=== PATIENT | female | born 1950 | race Caucasian/White ===

== ENCOUNTER → 2018-06-27 12:58 | Outpatient (REF) | payer MEDICARE, SELFPAY ==
--- NOTE | 2018-06-27 15:00 | PAPFT_PTH ---
PATIENT: Wanda Pierre LOC: [facility] U#:[id number] AGE/SX: 75/F ROOM: RE06/27/[address]: MEY Vivar : 1950 BED: DIS: SPEC #: [id number] RECD: 06/28/18 13:03 STATUS: JEREMIAH MOTA #: [id number] DEDRICK: 06/27/18 15:[address]: Lianna Moser DEPT: [facility] Cytology RECD BY: Delores Augustin Tissues: 1 - CX/ENDOCX FOR PAP SMEARS Procedures: PAP THIN PREP/UVM Screening HPV DNA PROBE Comments: [id number]
== END ==
LOC: LBN 12:58
PROVIDERS: PCP Nurse Practitioner Family; Visit Provider Nurse Practitioner Family
DX: Z12.4 Encounter for screening for malignant neoplasm of cervix (principal); Z11.51 Encounter for screening for human papillomavirus (HPV)
CPT/HCPCS: 88142; 87624

== ENCOUNTER 2018-07-12 00:47 | Outpatient (CLI) | payer MEDICARE, SELFPAY ==
--- NOTE | 2018-07-12 09:00 | DI.US_ITS ---
SYMPTOM/DIAGNOSIS: RLQ PAIN, R10.31, H/O OVARIAN CYSTS, POSTMENOPAUSAL PELVIC ULTRASOUND: Routine examination was performed. The uterus measures 9.6 cm. long by 4.8 cm. AP by 3.5 cm. transverse. The endometrial stripe is within normal limits. There is a 1.1 by 1.4 by 1.4 cm. hypoechoic region in the anterior body of the uterus likely reflecting a fibroid. The right ovary measures 2.9 by 2.1 by 3.0 cm. There is a 1.8 cm. simple cyst. The left ovary measures 1.9 by 1.2 by 1.7 cm. The ovary is unremarkable. The ovaries were only visualized transabdominally. No suspicious pelvic mass, free pelvic fluid or hydronephrosis is identified. IMPRESSION: 1.4 cm. uterine fibroid. Otherwise unremarkable pelvic ultrasound.
== END 2018-07-12 01:07 ==
PROVIDERS: PCP Nurse Practitioner Family; Visit Provider Nurse Practitioner Family
DX: D25.9 Leiomyoma of uterus, unspecified (principal); Z78.0 Asymptomatic menopausal state; N83.291 Other ovarian cyst, right side
CPT/HCPCS: 76830; 76856

== ENCOUNTER 2018-10-10 02:15 | Outpatient (CLI) | payer MEDICARE, SELFPAY ==
[2018-10-10 08:31] LABS: Anion Gap 10.1 mmol/L (3-11); BUN 17 mg/dL (7-18); CO2 27.9 mmol/L (21.0-32.0); CREATININE 0.82 mg/dL (0.55-1.02); Calcium 9.3 mg/dL (8.5-10.1); Chloride 104 mmol/L (98-107); Cholesterol 224 mg/dL (50-200); Glucose 102 mg/dL (70-100); HDL Cholesterol 49 mg/dL (40-60); LDL CHOLESTEROL 141 mg/dL (<100); Potassium 4.2 mmol/L (3.5-5.1); Sodium 142 mmol/L (136-145); Triglyceride 189 mg/dL (30-150)
== END 2018-10-10 02:35 ==
PROVIDERS: PCP Nurse Practitioner Family; Visit Provider Nurse Practitioner Family
DX: E78.5 Hyperlipidemia, unspecified (principal); I10 Essential (primary) hypertension
CPT/HCPCS: 36415; 80048; 80061; 83721

== ENCOUNTER 2018-11-01 01:09 | Outpatient (CLI) | payer MEDICARE, SELFPAY ==
--- NOTE | 2018-11-01 14:45 | DI.RAD_ITS ---
SYMPTOMS/DIAGNOSIS: SCREENING FOR OSTEOPOROSIS IN POSTMENOPAUSAL WOMAN, Z78.0 DEXA SCAN: Routine examination was performed. The single lateral image of the spine shows no compression fracture deformities. Evaluation of the left hip shows a total T score of -2.2 and a Z score of -0.9. The findings are consistent with osteopenia and an increased fracture risk. Evaluation of the lumbar spine shows a total T score of -1.4 and a Z score of 0.5. This is also consistent with osteopenia and an increased fracture risk. No evidence of osteoporosis is seen. IMPRESSION: Osteopenia in the left hip and lumbar spine.
--- NOTE | 2018-11-01 15:15 | DI.MAMMO_ITS ---
SYMPTOM/DIAGNOSIS: SCREENING, Z12.31 MAMMOGRAMS: Mammograms were interpreted according to the usual protocol including computer analysis with CAD system, tomosynthesis and C view imaging. Comparison is made with prior examinations. Breast density, Category B. No suspicious masses or microcalcifications are seen. There has been no significant change compared to the prior examinations. The skin and axilla are unremarkable. IMPRESSION: No evidence for malignancy. Yearly mammography is recommended. Category 1B. MQSA ASSESSMENT OF FINDINGS: Negative. Category 1. Patient will receive a letter notifying them of these results. BI-RADS category B. There are scattered areas of fibroglandular density.
== END 2018-11-01 01:29 ==
PROVIDERS: PCP Nurse Practitioner Family; Visit Provider Nurse Practitioner Family
DX: M85.88 Other specified disorders of bone density and structure, other site (principal); Z78.0 Asymptomatic menopausal state; Z12.31 Encounter for screening mammogram for malignant neoplasm of breast
CPT/HCPCS: 77063; 77067; 77080

== ENCOUNTER 2018-12-05 01:39 | Outpatient (CLI) | payer MEDICARE, SELFPAY ==
--- NOTE | 2018-12-05 14:33 | DI.MRI_ITS ---
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 The L1-2 disc is unremarkable. There is moderate loss of disc height and mild concentric disc bulging of the L2-3 disc. There are mild facet degenerative changes, but no significant central canal stenosis or neural foraminal narrowing. At L3-4, there is mild concentric disc bulging. There are facet degenerative changes causing mild central canal stenosis. There is no significant neural foraminal narrowing. At L4-5, there is mild loss of disc height and mild diffuse broad-based disc bulging. There is a superimposed left paracentral disc protrusion. There are facet degenerative changes and ligamentous hypertrophy combining with the disc bulging and disc protrusion to produce moderate tosevere central canal stenosis. There is no significant neural foraminal narrowing. The L5-S1 disc appears intact. There are mild facet degenerative changes. The conus medullaris and marrow signal appear normal. The aorta is normal in diameter. IMPRESSION: Left paracentral disc protrusion at L4-5. Moderate to severe central canal stenosis secondary to a combination of degenerative changes.
== END 2018-12-05 01:59 ==
PROVIDERS: PCP Nurse Practitioner Family; Visit Provider Nurse Practitioner Family
DX: M54.16 Radiculopathy, lumbar region (principal); M51.16 Intervertebral disc disorders with radiculopathy, lumbar region; M48.061 Spinal stenosis, lumbar region without neurogenic claudication
CPT/HCPCS: 72148

== ENCOUNTER 2019-01-10 11:25 | Outpatient (CLI) | payer MEDICARE, SELFPAY ==
[2019-01-10 12:45] LABS: Abs Immature Grans 0.04 k/cumm (0.0-0.09); Absolute Basophil Count 0.05 k/cumm (0.0-0.2); Absolute Eosinophil Count 0.14 k/cumm (0.0-0.7); Absolute Lymphocyte Count 2.63 k/cumm (1.2-3.4); Absolute Monocyte Count 0.73 k/cumm (0.11-0.7); Absolute Neutrophil Count 5.27 k/cumm (1.2-6.7); Basophils % 0.6; Eosinophils % 1.6; HCT 46.2 % (36.0-46.0); HGB 15.3 g/dL (12.0-15.5); Immature Grans % 0.5; Lymphocytes % 29.7; Mean Corp. HGB Concentration 33.1 g/dL (32.0-36.0); Mean Corpuscular Hemoglobin 27.8 pg (27.0-33.0); Mean Corpuscular Volume 83.8 fL (80-95); Mean Platelet Volume 10.6 fL (8.0-11.0); Monocytes % 8.2; Neutrophils % 59.4; Platelet Count 367 x1000/uL (130-400); RBC 5.51 m/cumm (4.00-5.20); RBC Distribution Width 13.3 % (11.7-14.6); White Blood Cell Count 8.86 k/cumm (4.4-10.8)
[2019-01-10 13:10] LABS: ALT 37 U/L (12-78); AST 15 U/L (15-37); Alkaline Phosphatase 95 U/L (46-116); Anion Gap 10.8 mmol/L (3-11); BUN 25 mg/dL (7-18); Bilirubin, Total 0.4 mg/dL (0.2-1.0); CO2 28.2 mmol/L (21.0-32.0); CREATININE 0.83 mg/dL (0.55-1.02); Calcium 9.6 mg/dL (8.5-10.1); Chloride 102 mmol/L (98-107); Glucose 102 mg/dL (70-100); Potassium 4.3 mmol/L (3.5-5.1); Sodium 141 mmol/L (136-145); Total Protein 7.7 g/dL (6.4-8.2)
[2019-01-10 18:55] LABS: Hemoglobin A1C 5.6 % (4.5-6.2)
== END 2019-01-10 11:45 ==
PROVIDERS: PCP Nurse Practitioner Family; Visit Provider Nurse Practitioner Family
DX: E11.9 Type 2 diabetes mellitus without complications (principal); Z01.818 Encounter for other preprocedural examination
CPT/HCPCS: 36415; 80053; 83036; 85025

== ENCOUNTER 2019-10-24 03:57 | Outpatient (CLI) | payer MEDICARE, SELFPAY ==
--- NOTE | 2019-10-28 11:29 | HOLT_ITS ---
Date of service: 10/28/19 Time of Service: 11:29 Holter Monitor Report Holter Monitor Note: There is a 48-hour Holter monitor ordered for the indication of tachycardia. ?Patient was in normal sinus rhythm for majority of the recording. ?The patient had 2 episodes of supraventricular tachycardia with the longest lasting 2 beats (189 bpm) ?The patient had rare (less than 1%) premature atrial contractions. ?Patient had 0 episodes of ventricular tachycardia and rare (less than 1%) single ventricular ectopic beats. ?The patient had no episodes of atrial fibrillation, no pauses greater than 3 seconds and no episodes of high degree heart block. CC: Dictated by: JAMES IMKE MD Dictated:: [id number] <Electronically signed by James Mike M.D.> 10/28/19 1131 Transcribed Date: 10/28/19 Transcribed Time: 1128By: DI THIS REPORT WAS ENTERED UNDER THE WRONG V#. IT WAS C & P INTO THE CORRECT V# BY ON 10/31/19
== END 2019-10-24 04:17 ==
PROVIDERS: PCP Nurse Practitioner Family; Visit Provider Nurse Practitioner Family
DX: I47.1 Supraventricular tachycardia (principal); I49.1 Atrial premature depolarization; I49.3 Ventricular premature depolarization
CPT/HCPCS: 93225

== ENCOUNTER 2019-10-24 08:29 | Outpatient (CLI) | payer MEDICARE, SELFPAY ==
[2019-10-24 10:30] LABS: Anion Gap 10.1 mmol/L (3-11); BUN 23 mg/dL (7-18); CO2 27.9 mmol/L (21.0-32.0); Calcium 9.9 mg/dL (8.5-10.1); Calculated LDL 150 mg/dL; Chloride 104 mmol/L (98-107); Cholesterol 276 mg/dL (<200); Glucose 110 mg/dL (74-106); HDL Cholesterol 51 mg/dL (40-60); Potassium 4.3 mmol/L (3.5-5.1); Sodium 142 mmol/L (136-145); TSH 4.29 uIU/mL (0.36-3.74); Triglyceride 376 mg/dL (<150)
[2019-10-24 10:42] LABS: Vitamin D 25 Total 19.5 ng/ml (30-100)
[2019-10-24 10:48] LABS: FREE T4 0.96 ng/dL (0.76-1.46)
== END 2019-10-24 08:49 ==
PROVIDERS: PCP Nurse Practitioner Family; Visit Provider Nurse Practitioner Family
DX: I10 Essential (primary) hypertension (principal); E78.5 Hyperlipidemia, unspecified; R00.0 Tachycardia, unspecified; M85.80 Other specified disorders of bone density and structure, unspecified site; I47.1 Supraventricular tachycardia; I49.1 Atrial premature depolarization; I49.3 Ventricular premature depolarization
CPT/HCPCS: 36415; 80048; 80061; 82306; 83735; 84439; 84443; 93225

== ENCOUNTER 2019-10-28 10:07 | Outpatient (CLI) | payer MEDICARE, SELFPAY | END 2019-10-28 10:27 | PROVIDERS: PCP Nurse Practitioner Family; Visit Provider Nurse Practitioner Family | DX: I47.1 Supraventricular tachycardia; I49.1 Atrial premature depolarization; I49.3 Ventricular premature depolarization | CPT/HCPCS: 93227; 93226 ==

== ENCOUNTER 2019-11-18 00:50 | Outpatient (CLI) | payer MEDICARE, SELFPAY ==
--- NOTE | 2019-10-28 11:29 | W.HOLTRPT ---
Date of service: 10/28/19 Time of Service: 11:29 Holter Monitor Report Holter Monitor Note: There is a 48-hour Holter monitor ordered for the indication of tachycardia. ?Patient was in normal sinus rhythm for majority of the recording. ?The patient had 2 episodes of supraventricular tachycardia with the longest lasting 2 beats (189 bpm) ?The patient had rare (less than 1%) premature atrial contractions. ?Patient had 0 episodes of ventricular tachycardia and rare (less than 1%) single ventricular ectopic beats. ?The patient had no episodes of atrial fibrillation, no pauses greater than 3 seconds and no episodes of high degree heart block.
--- NOTE | 2019-11-18 15:08 | DI.MAMMO_ITS ---
EXAM: MAMMO SCREENING CLINICAL HISTORY: SCREENING Z12.39 TECHNIQUE: Mammograms were interpreted according to the usual protocol including computer analysis w [employer] CAD system, tomosynthesis and C-view imaging. COMPARISON: Current examination is compared with previous examinations including October 2018 FINDINGS: Breasts are of moderate density with fairly symmetrical distribution of fibroglandular tissue. No do minant mass or clumped microcalcification is identified in either breast. Current examination is com pared with previous examinations including October 2018 and there has been no gross interval change i n appearance in comparison with previous studies. IMPRESSION: No specific evidence of malignancy at this time. Routine screening examinations are suggested at yea rly intervals due to the family history of breast carcinoma. Category 1, breast density category B. BI-RADS Cat 1 - Negative Breast Density - Category B - Scattered areas of fibroglandular density
== END 2019-11-18 01:10 ==
PROVIDERS: PCP Nurse Practitioner Family; Visit Provider Nurse Practitioner Family
DX: Z12.31 Encounter for screening mammogram for malignant neoplasm of breast (principal); Z80.3 Family history of malignant neoplasm of breast
CPT/HCPCS: 77063; 77067

== ENCOUNTER 2020-11-06 20:38 | Outpatient (REF) | payer MEDICARE, SELFPAY | END 2020-11-06 20:58 | LOC: LBN 20:38 | PROVIDERS: PCP Nurse Practitioner Family; Visit Provider Nurse Practitioner Family | DX: N76.0 Acute vaginitis (principal); N39.0 Urinary tract infection, site not specified | CPT/HCPCS: 87086; 87480; 87510; 87660 ==

== ENCOUNTER 2021-03-23 03:39 | Outpatient (CLI) | payer MEDICARE, SELFPAY ==
[2021-03-23 14:00] LABS: Anion Gap 10.7 mmol/L (3-11); BUN 20 mg/dL (7-18); CO2 28.3 mmol/L (21.0-32.0); Calculated LDL 100 mg/dL (<100); Chloride 103 mmol/L (98-107); Cholesterol 222 mg/dL (<200); Estimated GFR 55.14 (mL/min/1.73m2); Glucose 100 mg/dL (74-106); HDL Cholesterol 48 mg/dL (40-60); Sodium 142 mmol/L (136-145); Triglyceride 371 mg/dL (<150)
[2021-03-25 02:53] LABS: Vitamin D 25 Total 19.1 ng/mL (30-100)
== END 2021-03-23 03:40 | disposition home or self-care (01) ==
LOC: LBO 03:40
PROVIDERS: PCP Nurse Practitioner Family; Visit Provider Nurse Practitioner Family
DX: E55.9 Vitamin D deficiency, unspecified (principal); I10 Essential (primary) hypertension; E78.5 Hyperlipidemia, unspecified
CPT/HCPCS: 36415; 80048; 80061; 82306

== ENCOUNTER 2021-04-27 03:14 | Outpatient (CLI) | payer MEDICARE, SELFPAY ==
[2021-04-27 12:29] LABS: Anion Gap 12.2 mmol/L (3-11); BUN 22 mg/dL (7-18); CO2 23.8 mmol/L (21.0-32.0); Chloride 105 mmol/L (98-107); Estimated GFR 55.14 (mL/min/1.73m2); Glucose 99 mg/dL (74-106); Potassium 4.3 mmol/L (3.5-5.1); Sodium 141 mmol/L (136-145)
== END 2021-04-27 03:15 | disposition home or self-care (01) ==
LOC: LBO 03:14
PROVIDERS: PCP Nurse Practitioner Family; Visit Provider Nurse Practitioner Family
DX: I10 Essential (primary) hypertension (principal)
CPT/HCPCS: 36415; 80048

== ENCOUNTER → 2022-03-22 01:32 | Outpatient (CLI) | payer MEDICARE, SELFPAY ==
--- NOTE | 2022-03-22 08:09 | DI.MAMMO_ITS ---
Exam(s) MAMMO SCREENING EXAM: MAMMO SCREENING CLINICAL HISTORY: screening, Z12.39 TECHNIQUE: Mammograms were interpreted according to the usual protocol including computer analysis w [email or web address] CAD system, tomosynthesis and C-view imaging. COMPARISON: FINDINGS: The breasts are of moderate density with fairly symmetrical distribution of fibroglandular tissue. N o dominant mass or clumped microcalcification is identified in either breast. The current examinatio n is compared with previous examinations including October 2019 and there is question of increased pr ominence of a small focal area of asymmetric density seen in the lateral central portion of the left breast on CC view only. Additional mammographic views of the left breast requested to include CC spo t compression view. No other significant change seen. IMPRESSION: Additional mammographic views of the left breast are requested as described above. Breast ultrasound may be indicated as well depending on the results of the additional mammographic views. BI-RADS Category 0 - Assessment Incomplete: Need additional imaging evaluation Breast Density - Category B - Scattered areas of fibroglandular density
== END ==
PROVIDERS: PCP Nurse Practitioner Family; Visit Provider Physician Assistant
DX: Z12.31 Encounter for screening mammogram for malignant neoplasm of breast (principal); R92.8 Other abnormal and inconclusive findings on diagnostic imaging of breast
CPT/HCPCS: 77063; 77067

== ENCOUNTER → 2022-04-04 00:55 | Outpatient (CLI) | payer MEDICARE, SELFPAY ==
--- NOTE | 2022-04-04 10:30 | DI.MAMMO_ITS ---
Exam(s) MAMMO SCREEN CALL BACK UNI EXAM: MAMMO SCREEN CALL BACK UNI CLINICAL HISTORY: F/U ABNL MAMMO, ASYMMETRIC DENSITY LATERAL CENTRAL LT BREAST TECHNIQUE: Spot compression views and tomographic imaging were performed. COMPARISON: 2015 through 22 Mar 2022 FINDINGS: No suspicious masses or suspicious microcalcifications are seen. No persistent abnormality is seen on the additional views performed. The findings are consistent wit h overlying fibroglandular tissue. There has been no significant change from prior exams. IMPRESSION: BI-RADS Category 1, Negative Yearly screening mammography is recommended. Breast Density - Category B, scattered fibroglandular densities.
== END ==
PROVIDERS: PCP Nurse Practitioner Family; Visit Provider Physician Assistant
DX: Z12.31 Encounter for screening mammogram for malignant neoplasm of breast (principal); R92.8 Other abnormal and inconclusive findings on diagnostic imaging of breast; N64.59 Other signs and symptoms in breast
CPT/HCPCS: 77063; 77067

== ENCOUNTER 2022-05-20 02:34 | Outpatient (CLI) | payer MEDICARE, SELFPAY ==
[2022-05-20 12:53] LABS: Abs Immature Grans 0.02 10^3/uL (0.0-0.06); Absolute Basophil Count 0.07 10^3/uL (0.0-0.2); Absolute Eosinophil Count 0.25 10^3/uL (0.0-0.7); Absolute Lymphocyte Count 2.95 10^3/uL (1.2-3.4); Absolute Monocyte Count 0.68 10^3/uL (0.1-0.8); Absolute Neutrophil Count 3.95 10^3/uL (1.2-6.7); Basophils % 0.9; Eosinophils % 3.2; HCT 44.1 % (36.0-46.0); HGB 14.3 g/dL (11.2-15.7); Immature Grans % 0.3; Lymphocytes % 37.2; MCH 27.9 pg (27.0-33.0); MCHC 32.4 % (32.0-36.0); MCV 86 fL (80-95); MPV 10.5 fL (8.0-11.0); Monocytes % 8.6; Neutrophils % 49.8; Platelet Count 278 10^3/uL (130-400); RBC 5.13 10^6/uL (3.93-5.22); RDW 12.8 % (11.7-14.6); RDW-SD 39.9 fL; WBC 7.92 10^3/uL (4.4-10.8)
[2022-05-20 13:16] LABS: ALT 28 U/L (14-59); AST 23 U/L (15-37); Alkaline Phosphatase 82 U/L (46-116); Anion Gap 10.3 mmol/L (3-11); BUN 25 mg/dL (7-18); Bilirubin, Total 0.4 mg/dL (0.2-1.0); CO2 27.7 mmol/L (21.0-32.0); CREATININE 0.9 mg/dL (0.55-1.02); Calcium 9.2 mg/dL (8.5-10.1); Calculated LDL 130 mg/dL (<100); Chloride 101 mmol/L (98-107); Cholesterol 234 mg/dL (<200); Glucose 98 mg/dL (74-106); HDL Cholesterol 53 mg/dL (40-60); Potassium 4.5 mmol/L (3.5-5.1); Sodium 139 mmol/L (136-145); TSH (W/Ref FT4) 1.77 uIU/mL (0.36-3.74); Total Protein 7.7 g/dL (6.4-8.2); Triglyceride 259 mg/dL (<150)
== END 2022-05-20 02:35 | disposition home or self-care (01) ==
LOC: LOS 02:35
PROVIDERS: PCP Nurse Practitioner Family; Visit Provider Physician Assistant
DX: I10 Essential (primary) hypertension (principal); E78.5 Hyperlipidemia, unspecified
CPT/HCPCS: 36415; 80053; 80061; 84443; 85025

== ENCOUNTER → 2023-03-02 09:16 | Outpatient (BNVA) | payer MEDICARE, SELFPAY | PROVIDERS: PCP Nurse Practitioner Family; Referring Provider Nurse Practitioner Family; Visit Provider Physical Therapy Assistant | DX: Z12.11 Encounter for screening for malignant neoplasm of colon (principal); Z86.010 Personal history of colon polyps; Z80.0 Family history of malignant neoplasm of digestive organs ==

== ENCOUNTER 2023-03-21 06:53 | Day surgery (SDC) | payer MEDICARE, SELFPAY ==
[2023-03-21 07:05] VITALS: BP 141/91; PULSE 109; RESP 16; TEMP 36.3; O2SAT 96
[2023-03-21] MEDS: Lactated Ringers 1,000 ML 80 ML IV (07:45)
--- NOTE | 2023-03-21 07:53 | W.ANESPRE ---
General Info Date of Service Date Performed: 03/21/23 Height: 5 ft 4 in Weight: 80.5 kg Body Mass Index (BMI): 30.4 Surgical Procedure: Operation Date: 03/21/23 08:20 Proposed Procedure Side Surgeon p Colonoscopy Jordon Piña MD Meds Allergies and Home Medications Allergies Allergy/AdvReac Type Severity Reaction Status Date / Time No Known Allergies Allergy Unverified 03/21/23 07:24 Home Medication Medication Instructions Recorded bisacodyl 5 mg tablet,delayed 5 mg PO ONCE colonscopy bowel prep 03/02/23 release (Dulcolax (bisacodyl)) #4 tabs polyethylene glycol 3350 17 238 g PO ONCE colonoscopy prep 03/02/23 gram/dose oral powder #238 grams lisinopril 10 mg tablet 10 mg PO DAILY #90 tab-caps 03/20/23 Current Visit Medications: Current Medications Generic Name Dose Route Start Last Admin Trade Name Freq PRN Reason Stop Dose Admin Ringer's Solution 1,000 mls @ 80 mls/hr 03/21/23 06:00 03/21/23 07:45 IV 03/21/23 23:59 80 mls/hr INFUSION ARUN Administration IV Miscellaneous Supplies 1 each 03/21/23 06:00 Iv Access IV 03/21/23 23:59 DIRECTED ARUN Sodium Chloride 0 ml 03/21/23 06:00 Normal Saline Flush 10 Ml Syr IV 03/21/23 23:59 PRN PRN Sodium Chloride 0 ml 03/21/23 06:00 Normal Saline 10 Ml Vial IJ 03/21/23 23:59 DIRECTED PRN Sterile Water 0 ml 03/21/23 06:00 Water,Injection,Sterile 10 Ml Vial IJ 03/21/23 23:59 DIRECTED PRN PFSH Active Problems Active Problems: Problem Status Onset Code Hyperlipidemia E78.5 Osteopenia M85.80 Refusal of blood transfusions as patient is Mu-ism Z53.1 Essential hypertension I10 Vitamin D deficiency E55.9 Tachycardia R00.0 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 Copeland at [facility] Tobacco Smoking/Tobacco Use Status: Never Passive smoking exposure: No Second hand exposure: Yes Alcohol Alcohol Intake: never Substance Use Substance use: Never Substance use type: does not use Prental History History 3 Para 3 Hx # Term Pregnancies Multiple births Hx # Pregnancies Ectopic pregnancies AB induced Hx Number of Living Children 3 AB spontaneous Vital Signs and Lab Results Vital Signs Most Recent Vital Signs in EMR: Most Recent Vital Signs Temp Pulse Resp BP Pulse Ox 36.3 C L 109 H 16 141/91 H 96 03/21/23 07:05 03/21/23 07:05 03/21/23 07:05 03/21/23 07:05 03/21/23 07:05 Lab Results Blood Type / Crossmatch: No Data to Display Complete Blood Count: No Data to Display Complete Metabolic Panel: No Data to Display Liver Function Panel: No Data to Display Coagulation Panel: No Data to Display Cardiac Panel: No Data to Display Arterial Blood Gas: No Data to Display Venous Blood Gas: No Data to Display Pancreas Panel: No Data to Display Thyroid Panel: No Data to Display Infectious Disease: No Data to Display Blood Cultures: No Data to Display Toxicology Panel: No Data to Display Anesthesia Assessment and Plan Anesthesia History Personal History: No History of Anesthesia Complications and PONV Family History: No Family History of Anesthesia Complications Exercise Tolerance Exercise Tolerance: Metabolic Equivalents>4 Pertinent Negatives Pertinent Negatives: No Symptoms of GERD, No Major Cardiovascular Symptoms or Complaints and No Major Pulmonary Symptoms or Complaints Cardiac & Pulmonary Exam Cardiac Exam: Normal S1/S2 Heart Sounds Pulmonary Exam: Clear Bilateral Breath Sounds Implantable Cardiac Device Does patient have a Pacemaker or an ICD?: No Airway Exam Known Difficult Airway: No Mallampati Class: 3 Mouth Opening: Normal (> 3cm) Thyromental Distance: Less than 3 cm Neck Range of Motion: Full ROM Neck Circumference: Normal Teeth Condition: Normal Dentition ASA Classification ASA Score: ASA 2 Emergency Case?: No NPO Status NPO Status: NPO Clears >2 hours, Solids >8 hours Anesthesia Plan Resuscitation Status: Full Code Anesthesia Technique: General Anesthesia Airway Planned: Natural Airway Monitors Used: Standard Monitors
[2023-03-21 07:56] VITALS: BMI 30.4
--- NOTE | 2023-03-21 08:00 | W.COLOREPORT ---
Date of service: 03/21/23 Time of Service: 08:00 Colonoscopy Report Procedure Description: Procedures performed: 1. Colonoscopy with snare polypectomy x2 Preoperative diagnosis: Surveillance colonoscopy, colon polyps, family history Postoperative diagnosis: Colon polyps, grade 2 internal hemorrhoids Surgeon: Richard Piña Anesthesia: Coleman Indication for procedure: Patient is a 72-year-old woman who is not having any symptoms but has a strong family history of colorectal cancer. Both parents as well as her son. Prior colonoscopies have found adenomatous polyps in her. She is due for surveillance. Findings: The ileum appeared normal. On top of the ileocecal valve a 5-7 mm sessile polyp was removed with hot snare technique. In the ascending colon, another 5-7 mm sessile polyp was removed with hot snare technique. No diverticuli. Grade 2 internal hemorrhoids noted on retroflexion Surveillance/follow-up recommendations: Because of the personal & family histories and finding, right?sided, obviously adenomatous polyps, I recommend repeating in 3 years. Complications: None Blood loss: Minimal Specimens:?? YES Quality of Prep:?? Good Procedure in detail: Written consent was obtained from the patient who was in agreement with the risks, benefits and indications of the procedure.? We went to the endoscopy suite and laid the patient in left lateral decubitus position.? Anesthesia was administered which was tolerated well.? A timeout was performed and when we are all in agreement we began the procedure. Digital rectal exam and visual examination was performed and within normal limits.? A well?lubricated colonoscope was advanced without difficulty all the way to the cecum identified by the ileocecal valve, and triangular folds and appendiceal orifice. The terminal ileum was intubated and appeared normal.? It was then slowly withdrawn.?? Retroflexion was performed in the rectum.? The findings/interventions are noted above. The scope was then removed and the patient tolerated the procedure well and was then taken back to the PACU in hemodynamically stable condition.
--- NOTE | 2023-03-21 08:22 | BOWEL_PTH ---
PATIENT: Wanda Pierre LOC: [facility] U#:[id number] AGE/SX: 72/F ROOM: RE03/21/[address]: Jordon Piña : 1950 BED: DIS: 03/21/2023 SPEC #: [id number] RECD: 03/21/23 11:24 STATUS: JEREMIAH RE #: [id number] DEDRICK: 03/21/23 08:[address]: Jordon Piña DEPT: Surgical Specimen RECD BY: Delores Augustin ENTERED: 03/21/23 11:24 SP TYPE: Bowel OTHR DR: Lianna Moser, MEY Tissues: 1 - BIOPSY BOWEL 2 - BIOPSY BOWEL Procedures: GROSS AND MICRO LEVEL 4 Comments: [id number]
[2023-03-21 08:35] VITALS: BP 91/71; PULSE 92; RESP 22; TEMP 36.5; O2SAT 94
--- NOTE | 2023-03-21 08:47 | W.ANESPOSTOP ---
Postoperative Evaluation Date, Time and Location Date Performed: 03/21/23 Time Performed: 08:47 Patient Location: Day Surgery Unit Vital Signs Most Recent Imported Vital Signs: Most Recent Vital Signs Temp Pulse Resp BP Pulse Ox 36.3 C L 109 H 16 141/91 H 96 03/21/23 07:05 03/21/23 07:05 03/21/23 07:05 03/21/23 07:05 03/21/23 07:05 Pain Score Most Recent Pain Score: Most Recent Pain Score Pain Level 0 03/21/23 07:05 Assessment Mental Status: Awake (Alert & Oriented to Patient Baseline) Airway and Respiratory Function: Patent airway with normal (patient baseline) respiratory exam Cardiovascular Function: Hemodynamically Stable Hydration Status: Adequately Hydrated Nausea & Vomiting: No Nausea or Vomiting Pain: Pt. Denies Any Pain Peripheral Nerve Block: Patient did not receive a nerve block
[2023-03-21 08:55] VITALS: BP 136/80; PULSE 87; RESP 20; TEMP 36.2; O2SAT 95
== END 2023-03-21 09:17 | disposition home or self-care (01) ==
PROVIDERS: PCP Nurse Practitioner Family; Visit Provider Student in an Organized Health Care Education/Training Program
PROC: 0DJD8ZZ Inspection of Lower Intestinal Tract, Via Natural or Artificial Opening Endoscopic (ICD-10-PCS; CPT 45378; principal; 2023-03-21 08:15)
DX: Z12.11 Encounter for screening for malignant neoplasm of colon (principal); Z86.010 Personal history of colon polyps; Z80.0 Family history of malignant neoplasm of digestive organs; K64.1 Second degree hemorrhoids; D12.0 Benign neoplasm of cecum; K63.89 Other specified diseases of intestine
CPT/HCPCS: 45385; 88305

== ENCOUNTER 2023-04-04 03:17 | Outpatient (CLI) | payer MEDICARE, SELFPAY ==
[2023-04-04 13:15] LABS: Anion Gap 7.3 mmol/L (3-11); BUN 24 mg/dL (7-18); CO2 30.7 mmol/L (21.0-32.0); CREATININE 1.1 mg/dL (0.55-1.02); Calcium 9.6 mg/dL (8.5-10.1); Calculated LDL 128 mg/dL (<100); Chloride 105 mmol/L (98-107); Cholesterol 235 mg/dL (<200); Estimated GFR 54.06 (mL/min/1.73m2); Glucose 110 mg/dL (74-106); HDL Cholesterol 56 mg/dL (40-60); Potassium 4.9 mmol/L (3.5-5.1); Sodium 143 mmol/L (136-145); TSH (W/Ref FT4) 2.68 uIU/mL (0.36-3.74); Triglyceride 255 mg/dL (<150)
[2023-04-04 13:16] LABS: Vitamin D 25 Total 19.9 ng/mL (30-100)
[2023-04-04 13:54] LABS: Hemoglobin A1C 5.9 % (<5.7)
== END 2023-04-04 03:18 | disposition home or self-care (01) ==
LOC: LOS 03:17
PROVIDERS: PCP Nurse Practitioner Family; Visit Provider Nurse Practitioner Family
DX: I10 Essential (primary) hypertension (principal); R73.01 Impaired fasting glucose; E55.9 Vitamin D deficiency, unspecified
CPT/HCPCS: 36415; 80048; 80061; 82306; 83036; 84443

== ENCOUNTER → 2023-09-18 02:17 | Outpatient (CLI) | payer MEDICARE, SELFPAY ==
--- NOTE | 2023-09-18 08:00 | DI.MAMMO_ITS ---
Exam(s) MAMMO SCREENING EXAM: MAMMO SCREENING CLINICAL HISTORY: screening, Z12.39 TECHNIQUE: Mammograms were interpreted according to the usual protocol including computer analysis w [employer] CAD system, tomosynthesis and C-view imaging. COMPARISON: 2014 through 2021 FINDINGS: The breasts are composed of scattered fibroglandular densities, Breast Density category B. No suspicious masses or suspicious microcalcifications are seen. No skin thickening or abnormal axillary lymph nodes are seen. There has been no significant change from prior exams. IMPRESSION: BI-RADS Category 1, Negative mammogram Yearly screening mammography is recommended. Breast Density - Category B, scattered fibroglandular densities. A negative radiographic report should not delay biopsy if a dominant or clinically suspicious mass is present. Up to ten percent of cancers are not identified on mammography. A negative report may reinforce clinical impression. Adenosis and dense breasts may obscure an underlying neoplasm. False positive reports average 6 to 10%. Patient will receive a letter notifying them of these results.
--- NOTE | 2023-09-18 08:00 | DI.DEXA_ITS ---
Exam(s) XR DEXA BONE DENSITY W/WO GUILLERMINA EXAM: XR DEXA BONE DENSITY W/WO GUILLERMINA CLINICAL HISTORY: osteopenia, POSTMENOPAUSAL STATUS, Z78.0 TECHNIQUE: [employer] Horizon C densitometer analysis of left hip, lumbar spine and left forearm. Lat eral survey image of the thoracic and lumbar spine. COMPARISON: DX XR DEXA BONE DENSITY W/WO GUILLERMINA from 11/01/2018 FINDINGS: Lateral view of the thoracic and lumbar spine shows no evidence of compression fractures. Bone mineral density measurements of the lumbar spine correspond to a total T-score of -1.3, in the osteopenic range. Not significantly changed from prior. Bone mineral density measurements of the left hip correspond to a total T-score of -2.0. This repres ents a 3.4 percent increase from 2019. . The femoral neck T-score is -2.6, in the osteoporotic ran ge.. Theleft forearm bone mineral density measurements correspond to a T-score of the distal 3rd of 0.3, in the osteoporotic range. This represents a 5.7 percent decrease from the prior exam.. IMPRESSION: Osteoporosis of the forearm and hip. Osteopenia of the lumbar spine.
== END ==
PROVIDERS: PCP Nurse Practitioner Family; Visit Provider Nurse Practitioner Family
DX: Z78.0 Asymptomatic menopausal state (principal); Z12.31 Encounter for screening mammogram for malignant neoplasm of breast; Z13.820 Encounter for screening for osteoporosis; M81.0 Age-related osteoporosis without current pathological fracture
CPT/HCPCS: 77063; 77067; 77080

== ENCOUNTER 2024-03-21 05:17 | Outpatient (CLI) | payer MEDICARE, SELFPAY ==
[2024-03-21 12:33] LABS: Abs Immature Grans 0.01 10^3/uL (0.0-0.06); Absolute Basophil Count 0.08 10^3/uL (0.0-0.2); Absolute Eosinophil Count 0.19 10^3/uL (0.0-0.7); Absolute Lymphocyte Count 2.89 10^3/uL (1.2-3.4); Basophils % 1.1 %; Eosinophils % 2.5 %; HCT 44.8 % (36.0-46.0); HGB 14.5 g/dL (11.2-15.7); Immature Grans % 0.1 %; Lymphocytes % 38.7 %; MCH 28.3 pg (27.0-33.0); MCHC 32.4 % (32.0-36.0); MCV 88 fL (80-95); MPV 10.8 fL (8.0-11.0); Neutrophils % 49.6 %; Platelet Count 260 10^3/uL (130-400); RBC 5.12 10^6/uL (3.93-5.22); RDW-SD 41.8 fL; WBC 7.47 10^3/uL (4.4-10.8)
[2024-03-21 12:54] LABS: Hemoglobin A1C 6.3 % (<5.7)
[2024-03-21 13:06] LABS: Vitamin D 25 Total 29.8 ng/mL (30-100)
[2024-03-21 13:08] LABS: ALT 33 U/L (14-59); AST 24 U/L (15-37); Albumin 4.3 g/dL (3.4-5.0); Alkaline Phosphatase 84 U/L (46-116); Anion Gap 10.5 mmol/L (3-11); BUN 21 mg/dL (7-18); Bilirubin, Total 0.5 mg/dL (0.2-1.0); CO2 26.5 mmol/L (21.0-32.0); Calcium 9.1 mg/dL (8.5-10.1); Calculated LDL 61 mg/dL (<100); Chloride 104 mmol/L (98-107); Cholesterol 167 mg/dL (<200); Estimated GFR 60.23 (mL/min/1.73m2); Glucose 104 mg/dL (74-106); HDL Cholesterol 59 mg/dL (40-60); Potassium 4.8 mmol/L (3.5-5.1); Sodium 141 mmol/L (136-145); Triglyceride 236 mg/dL (<150)
[2024-03-21 20:07] LABS: Hepatitis C Ab w Rflx HCV PCR Negative (Negative)
== END 2024-03-21 05:18 | disposition home or self-care (01) ==
LOC: LOS 05:18
PROVIDERS: PCP Nurse Practitioner Family; Visit Provider Nurse Practitioner Family
DX: I10 Essential (primary) hypertension (principal); M81.0 Age-related osteoporosis without current pathological fracture; R73.03 Prediabetes; E55.9 Vitamin D deficiency, unspecified; Z11.59 Encounter for screening for other viral diseases
CPT/HCPCS: 36415; 80053; 80061; 82306; 86803; 83036; 85025

== ENCOUNTER 2024-03-27 11:29 | Outpatient (CLI) | payer MEDICARE, SELFPAY ==
[2024-03-27 13:10] LABS: TSH (W/Ref FT4) 2.18 uIU/mL (0.36-3.74)
[2024-03-28 11:43] LABS: HBs Antibody, Quant <3.1 mIU/mL (See Note); Hep B Surface Ab Negative (See Note); Hepatitis B Core Antibody Negative (Negative); Hepatitis B Surface Antigen Negative (Negative)
[2024-03-28 11:57] LABS: HIV-1/2 Ag & Ab Screen Negative (Negative)
[2024-03-28 12:04] LABS: Hep A Total Ab w Rflx IgM Negative (Negative)
== END 2024-03-27 11:30 | disposition home or self-care (01) ==
LOC: LOS 11:29
PROVIDERS: PCP Nurse Practitioner Family; Referring Provider Nurse Practitioner Family; Visit Provider Nurse Practitioner Family
DX: R19.7 Diarrhea, unspecified (principal); Z11.51 Encounter for screening for human papillomavirus (HPV); Z11.59 Encounter for screening for other viral diseases; Z01.419 Encounter for gynecological examination (general) (routine) without abnormal findings
CPT/HCPCS: 36415; 86704; 86706; 86709; 87340; 87389; 84443

== ENCOUNTER 2024-03-28 09:06 | Outpatient (REF) | payer MEDICARE, SELFPAY ==
[2024-03-28 22:16] LABS: Campylobacter PCR Negative (Negative); Salmonella PCR Negative (Negative); Shiga Toxin PCR Negative (Negative); Shigella/Enteroinvasive Ecoli Negative (Negative)
[2024-04-01 12:07] LABS: Calprotectin <50.0 mcg/g
== END 2024-03-28 09:07 | disposition home or self-care (01) ==
LOC: LBN 09:06
PROVIDERS: PCP Nurse Practitioner Family; Visit Provider Nurse Practitioner Family
DX: R11.0 Nausea (principal); R19.7 Diarrhea, unspecified
CPT/HCPCS: 87329; 87505; 83993

== ENCOUNTER 2025-04-28 02:10 | Outpatient (CLI) | payer MEDICARE, SELFPAY ==
[2025-04-28 13:00] LABS: Hemoglobin A1C 6.2 % (<5.7)
[2025-04-28 13:01] LABS: ALT 34 U/L (14-59); AST 20 U/L (15-37); Albumin 4.2 g/dL (3.4-5.0); Alkaline Phosphatase 80 U/L (46-116); Anion Gap 9.3 mmol/L (3-11); BUN 44 mg/dL (7-18); Bilirubin, Total 0.5 mg/dL (0.2-1.0); CO2 26.7 mmol/L (21.0-32.0); CREATININE 1.1 mg/dL (0.55-1.02); Calcium 9.4 mg/dL (8.5-10.1); Calculated LDL 68 mg/dL (<100); Chloride 103 mmol/L (98-107); Cholesterol 171 mg/dL (<200); Estimated GFR 53.39 (mL/min/1.73m2); Glucose 118 mg/dL (74-106); HDL Cholesterol 55 mg/dL (>or=50); Potassium 4.6 mmol/L (3.5-5.1); Sodium 139 mmol/L (136-145); TSH (W/Ref FT4) 2.44 uIU/mL (0.36-3.74); Triglyceride 244 mg/dL (<150); Vitamin D 25 Total 33 ng/mL (30-100)
== END 2025-04-28 02:11 | disposition home or self-care (01) ==
LOC: LOS 02:10
PROVIDERS: PCP Nurse Practitioner Family; Visit Provider Nurse Practitioner Family
DX: R73.03 Prediabetes (principal); M81.0 Age-related osteoporosis without current pathological fracture; R63.5 Abnormal weight gain; E78.5 Hyperlipidemia, unspecified
CPT/HCPCS: 36415; 80053; 80061; 82306; 83036; 84443

== ENCOUNTER 2025-05-20 01:33 | Outpatient (CLI) | payer MEDICARE, SELFPAY ==
--- NOTE | 2025-05-20 08:06 | DI.MAMMO_ITS ---
Exam(s) MAMMO SCREENING EXAM: MAMMO SCREENING CLINICAL HISTORY: screening,z12.39 TECHNIQUE: Mammograms were interpreted according to the usual protocol including computer analysis with CAD system, tomosynthesis and C-view imaging. COMPARISON: 2014 through 2022 FINDINGS: The breasts are composed of scattered fibroglandular densities, Breast Density category B. No suspicious masses or suspicious microcalcifications are seen. No skin thickening or abnormal axillary lymph nodes are seen. There has been no significant change from prior exams. IMPRESSION: BI-RADS Category 1, Negative mammogram Yearly screening mammography is recommended. Breast Density - Category B - There are scattered areas of fibroglandular density. Breast density Category C or D implies that the patient has dense breast tissue. Dense breast tissue can make it harder to find cancer on a mammogram. Dense breast tissue is also associated with an increased risk of breast cancer. This information about the result of the mammogram report was provided to the patient to raise their awareness. Use this report when you speak with the patient about their risks for breast cancer, which includes their family history. At that time, you may recommend additional screening tests (Ultrasound or MRI) as these tests may add significant information. A negative radiographic report should not delay biopsy if a dominant or clinically suspicious mass is present. Up to ten percent of cancers are not identified on mammography. A negative report may reinforce clinical impression. Adenosis and dense breasts may obscure an underlying neoplasm. False positive reports average 6 to 10%. Patient will receive a letter notifying them of these results.
== END 2025-05-20 01:53 ==
LOC: DI 01:34
PROVIDERS: PCP Nurse Practitioner Family; Visit Provider Nurse Practitioner Family
DX: Z12.31 Encounter for screening mammogram for malignant neoplasm of breast (principal); E66.9 Obesity, unspecified; R92.323 Mammographic fibroglandular density, bilateral breasts
CPT/HCPCS: 77063; 77067

== ENCOUNTER 2025-07-02 14:22 | Outpatient (CLI) | payer MEDICARE, SELFPAY ==
--- NOTE | 2025-07-02 06:00 | DI.RAD_ITS ---
Exam(s) XR FOOT RT COMPLETE EXAM: XR FOOT RT COMPLETE CLINICAL HISTORY: Right foot pain M79.671. TECHNIQUE: 2D digital imaging was performed of the right foot. Three images were obtained. AP, oblique and lateral views were obtained. COMPARISON: No exams were available for comparison FINDINGS: BONES: No acute fracture is present. No bony destructive lesion is seen. There is an enthesophyte at the posterior calcaneus. There is a small plantar calcaneal spur. JOINTS: No dislocation present. The joint spaces are well maintained. SOFT TISSUE: Normal. IMPRESSION: Calcaneal spurs. DATA REPOSITORY: RADIATION DOSE DELIVERED:
== END 2025-07-02 14:42 ==
PROVIDERS: PCP Nurse Practitioner Family; Visit Provider Podiatrist
DX: M79.671 Pain in right foot (principal); M77.31 Calcaneal spur, right foot; M84.374A Stress fracture, right foot, initial encounter for fracture; X58.XXXA Exposure to other specified factors, initial encounter; M92.61 Juvenile osteochondrosis of tarsus, right ankle; M76.61 Achilles tendinitis, right leg; M72.2 Plantar fascial fibromatosis
CPT/HCPCS: 29580; 99213; 29850; 73630

== ENCOUNTER → 2025-07-23 14:01 | Outpatient (BNVA) | payer MEDICARE, SELFPAY | PROVIDERS: PCP Nurse Practitioner Family; Referring Provider Nurse Practitioner Family; Visit Provider Podiatrist | DX: M79.671 Pain in right foot (principal); M92.61 Juvenile osteochondrosis of tarsus, right ankle; M76.61 Achilles tendinitis, right leg; M72.2 Plantar fascial fibromatosis; M84.374A Stress fracture, right foot, initial encounter for fracture | CPT/HCPCS: 99213 ==

== ENCOUNTER → 2025-08-27 14:19 | Outpatient (BNVA) | payer MEDICARE, SELFPAY | PROVIDERS: PCP Nurse Practitioner Family; Referring Provider Nurse Practitioner Family; Visit Provider Podiatrist | DX: M84.374A Stress fracture, right foot, initial encounter for fracture (principal); M72.2 Plantar fascial fibromatosis; M77.31 Calcaneal spur, right foot; M76.61 Achilles tendinitis, right leg; M79.671 Pain in right foot; X58.XXXA Exposure to other specified factors, initial encounter | CPT/HCPCS: 99213 ==